=== PATIENT | male | born 1970 | race Caucasian/White ===

== ENCOUNTER 2018-08-26 07:09 | Emergency (ER) | payer BC ==
[2018-08-26 07:41] VITALS: BP 163/104
--- NOTE | 2018-08-26 08:16 | ED ---
Neck Pain - HPI Summary HPI Summary: 48 yr old male with long standing history of posterior neck pain, and now having pain in right posterior shoulder for past few weeks. Over the past week he has been having pain in the right forearm as well now, and since 430 am today pain, and numbness in the right thumb and index finger. Pain is worse with flexion of neck forward. Pain is 8/10. No bowel or bladder incontinence. No fever, chills. No chest pain or SOB. He states he has not gone to chiropractor for his neck in two years. He has not been able to get MRI of neck as outpatient through primary doctor. - History of Current Complaint Chief Complaint: UCUpperExtremity Stated Complaint: RT SHOULDER/ARM PAIN Time Seen by Provider: 08/26/18 07:45 Pain Intensity: 10 - Allergies/Home Medications Allergies/Adverse Reactions: Allergies Allergy/AdvReac Type Severity Reaction Status Date / Time No Known Allergies Allergy Verified 08/26/18 07:35 Home Medications: Home Medications Ibuprofen TAB* [Advil TAB*] 800 mg PO Q8H PRN 08/26/18 [History Confirmed ] Omeprazole CAP* [Prilosec CAP* 20 MG] 40 mg PO EVERY OTHER DAY 08/26/18 [ History Confirmed 08/26/18] PMH/Surg Hx/FS Hx/Imm Hx Infectious Disease History: No Infectious Disease History: Denies: Traveled Outside the [place] in Last 30 Days - Family History Known Family History: Positive: None - Social History Occupation: Employed Full-time Alcohol Use: Weekly Substance Use Type: Reports: None Smoking Status (MU): Never Smoked Tobacco Review of Systems Negative: Fever, Chills Positive: Other - posterior neck pain, and pain in right arm/ hand Positive: Numbness - right thumb and index finger All Other Systems Reviewed And Are Negative: Yes Physical Exam Triage Information Reviewed: Yes Vital Signs On Initial Exam: Initial Vitals Temp Pulse Resp BP Pulse Ox 98.2 F 67 16 163/104 99 08/26/18 07:32 08/26/18 07:32 08/26/18 07:32 08/26/18 07:32 08/26/18 07:32 Vital Signs Reviewed: Yes Appearance: Positive: Well-Appearing, No Pain Distress Skin: Positive: Warm, Skin Color Reflects Adequate Perfusion Head/Face: Positive: Normal Head/Face Inspection Eyes: Positive: EOMI ENT: Negative: Nasal congestion, Nasal drainage, Muffled voice, Hoarse voice Neck: Positive: Nontender, Other: - flexion of neck forward makes his pain worse. Respiratory/Lung Sounds: Positive: Clear to Auscultation, Breath Sounds Present Cardiovascular: Positive: RRR. Negative: Murmur Abdomen Description: Positive: Nontender Musculoskeletal: Positive: Strength/ROM Intact Neurological: Positive: Sensory/Motor Intact - he reports tingly feeling in the right thumb and index finger to palpation., Alert, Oriented to Person Place, Time, CN Intact II-III, Normal Gait, Speech Normal Psychiatric: Positive: Normal Diagnostics - Vital Signs Vital Signs Temp Pulse Resp BP Pulse Ox 08/26/18 07:32 98.2 F 67 16 163/104 99 - Laboratory Lab Statement: Any lab studies that have been ordered have been reviewed, and results considered in the medical decision making process. Neck Course/Dx - Course Course Of Treatment: 48 yr old male with radicular neck pain, and numbness. he drove here himself and also walking fine. He does not want ambulance. He will go to the ER for further work up, MRI of neck to define the problem. - Diagnoses Provider Diagnoses: Radiculopathy, Neck pain Discharge - Sign-Out/Discharge Documenting (check all that apply): Patient Departure All imaging exams completed and their final reports reviewed: No Studies - Discharge Plan Condition: Good Disposition: HOME-RECOMMEND TO ED Patient Education Materials: Neck Pain (ED), Cervical Radiculopathy (ED), Hypertension (ED) Referrals: Sly Pedro MD [Primary Care Provider] - Additional Instructions: You should go to the ER now for work up of your pain and numbness in your right thumb and index finger and neck pain/shoulder pain. Do not delay. - Billing Disposition and Condition Condition: GOOD Disposition: Home-Recommend to ED
== END 2018-08-26 08:15 | disposition home health service (06) ==
LOC: UCCORT 07:09
DX: M54.10 Radiculopathy, site unspecified (principal); M54.2 Cervicalgia
CPT/HCPCS: 99212; G0463